=== PATIENT | male | born 1985 | race Caucasian/White ===

== ENCOUNTER 2017-05-31 07:56 | Emergency (ER) | payer OTHER ==
[2017-05-31] MEDS: IBUPROFEN 800 MG TAB PO (08:33)
== END 2017-05-31 10:36 | disposition home or self-care (01) ==
LOC: E/R 07:56
DX: S60.222A Contusion of left hand, initial encounter (principal); J45.909 Unspecified asthma, uncomplicated; V43.52XA Car driver injured in collision with other type car in traffic accident, initial encounter; Y92.9 Unspecified place or not applicable
CPT/HCPCS: 29125; 71045; 73110-LT; 73130-LT; 99284-25

== ENCOUNTER 2017-07-29 23:09 | Emergency (ER) | payer OTHER ==
[2017-07-30] MEDS: IPRATROPIUM (NEB) 0.5 MG/2.5 ML AMP NEB (01:31)
[2017-07-30] MEDS: ALBUTEROL 0.083% (NEB) 2.5 MG/3 ML AMP NEB (01:31)
[2017-07-30] MEDS: METHYLPREDNISOLONE 125 MG INJ IM (01:40)
== END 2017-07-30 02:03 | disposition home or self-care (01) ==
LOC: FTE 23:09
DX: J45.901 Unspecified asthma with (acute) exacerbation (principal); J20.9 Acute bronchitis, unspecified; Z87.891 Personal history of nicotine dependence
CPT/HCPCS: 94664; 96372; 99284-25

== ENCOUNTER 2018-05-08 11:40 | Emergency (ER) | payer MEDICAID, OTHER ==
[2018-05-08] MEDS: SOD CHLORIDE 0.9% 1,000 ML IV (12:47)
[2018-05-08] MEDS: DEXAMETHASONE 10 MG/ML 1 ML INJ IV (12:47)
[2018-05-08] MEDS: ALBUTEROL 0.083% (NEB) 2.5 MG/3 ML AMP NEB (12:52)
[2018-05-08] MEDS: IPRATROPIUM (NEB) 0.5 MG/2.5 ML AMP NEB (12:52)
[2018-05-08] MEDS: IPRATROPIUM (NEB) 0.5 MG/2.5 ML AMP HHN ×2 (13:47→15:30)
[2018-05-08] MEDS: ALBUTEROL 0.083% (NEB) 2.5 MG/3 ML AMP HHN ×2 (13:47→15:33)
[2018-05-08] MEDS: SOD CHLORIDE 0.9% 500 ML IV (14:43)
[2018-05-08] MEDS: CEFTRIAXONE 1 GM/50 ML (PMX) 50 ML IVPB (14:43)
== END 2018-05-08 16:36 | disposition home or self-care (01) ==
LOC: FTE 11:40
DX: J45.901 Unspecified asthma with (acute) exacerbation (principal); Z87.891 Personal history of nicotine dependence
CPT/HCPCS: 94640; 94664; 96361; 96365; 96375; 99285-25

== ENCOUNTER 2018-10-11 21:41 | Emergency (ER) | payer SELFPAY, MEDICAID | END 2018-10-12 01:47 | disposition home or self-care (01) | LOC: FTE 21:41 | DX: H60.92 Unspecified otitis externa, left ear (principal); J45.909 Unspecified asthma, uncomplicated; Z87.891 Personal history of nicotine dependence | CPT/HCPCS: 99283 ==

== ENCOUNTER 2018-10-28 11:37 | Emergency (ER) | payer MEDICAID ==
[2018-10-28] MEDS: IBUPROFEN 800 MG TAB PO (12:14)
== END 2018-10-28 12:35 | disposition home or self-care (01) ==
LOC: E/R 11:37
DX: R07.89 Other chest pain (principal); J45.909 Unspecified asthma, uncomplicated; Z87.891 Personal history of nicotine dependence
CPT/HCPCS: 71045; 93005; 99284-25

== ENCOUNTER 2018-11-03 07:42 | Emergency (ER) | payer MEDICAID ==
[2018-11-03] MEDS: predniSONE 20 MG TAB PO (08:03)
[2018-11-03] MEDS: IPRATROPIUM (NEB) 0.5 MG/2.5 ML AMP NEB (08:05)
[2018-11-03] MEDS: ALBUTEROL 0.083% (NEB) 2.5 MG/3 ML AMP NEB (08:05)
== END 2018-11-03 08:48 | disposition home or self-care (01) ==
LOC: FTE 08:48
DX: J45.901 Unspecified asthma with (acute) exacerbation (principal)
CPT/HCPCS: 94664; 99283-25

== ENCOUNTER 2019-01-05 08:42 | Emergency (ER) | payer OTHER, MEDICAID ==
[2019-01-05] MEDS: DEXAMETHASONE 10 MG/ML 1 ML INJ IV (09:39)
[2019-01-05] MEDS: IPRATROPIUM (NEB) 0.5 MG/2.5 ML AMP NEB (09:56)
[2019-01-05] MEDS: ALBUTEROL 0.083% (NEB) 2.5 MG/3 ML AMP NEB (09:57)
== END 2019-01-05 10:36 | disposition home or self-care (01) ==
LOC: FTE 10:36
DX: J45.901 Unspecified asthma with (acute) exacerbation (principal); Z87.891 Personal history of nicotine dependence
CPT/HCPCS: 94664; 96374; 99284-25